=== PATIENT | female | born 1955 | race Caucasian/White ===

== ENCOUNTER 2021-11-05 09:30 | Outpatient (CLI) | payer MEDICARE, SELFPAY ==
--- NOTE | 2021-11-05 10:03 | MM_ITS ---
WS: [id number] BILATERAL SCREENING DIGITAL BREAST TOMOSYNTHESIS MAMMOGRAM WITH CAD HISTORY: SCREENING COMPARISON: 01/11/2018 and 01/15/2014 Bilateral CC and MLO views with tomosynthesis and synthetic mammography submitted. Computer aided det ection analyzed. Breast composition: There are scattered areas of fibroglandular density. No suspicious masses, microc alcifications or architectural distortion. Scattered bilateral asymmetries within each breast and laura cifications and nodules. No interval change or development of architectural distortion. MM/[place] [id number] IMPRESSION: BI-RADS: 2-Benign FOLLOW UP: 1 Year Follow-up
== END 2021-11-05 09:31 | disposition home or self-care (01) ==
LOC: RAD 09:30
PROVIDERS: Family Provider Family Medicine; Visit Provider Family Medicine
DX: Z12.31 Encounter for screening mammogram for malignant neoplasm of breast (principal)
CPT/HCPCS: 77063; 77067

== ENCOUNTER 2021-12-28 13:16 | Outpatient (CLI) | payer MEDICARE, SELFPAY ==
--- NOTE | 2021-12-28 13:31 | XR_ITS ---
WS: [id number] DEXA (DUAL ENERGY X-RAY ABSORPTIOMETRY) Bone mineral density was performed using a [employer] machine. HISTORY: POSTMENOPAUSAL COMPARISON: None available. Lumbar spine BMD (L1-L4): 1.417 g/cm2 T score: 2.0 Z score: 2.9 Total hip BMD: Left: 0.998 g/cm2. T score: -0.1 Z score: 0.7 Right: 0.932 g/cm2. T score: -0.6 Z score: 0.2 10 year probability of a major osteoporotic fracture is 7.5%. XR/XR DEXA axial skeleton* [id number] IMPRESSION: NORMAL BONE MINERAL DENSITY based upon the WHO classification for females.
== END 2021-12-28 13:17 | disposition home or self-care (01) ==
LOC: RAD 13:20
PROVIDERS: PCP Family Medicine; Visit Provider Nurse Practitioner Family
DX: Z78.0 Asymptomatic menopausal state (principal)
CPT/HCPCS: 77080

== ENCOUNTER 2022-11-24 10:50 | Outpatient (CLI) | payer MEDICARE, SELFPAY ==
--- NOTE | 2022-11-24 11:01 | MM_ITS ---
WS: [id number] BILATERAL SCREENING DIGITAL TOMOSYNTHESIS MAMMOGRAM WITH CAD HISTORY: SCREENING COMPARISON: 11/05/2021, 01/11/2018 Bilateral CC and MLO views with tomosynthesis and synthetic mammography submitted. Computer aided det ection analyzed. Breast composition: There are scattered areas of fibroglandular density. No suspicious masses, microc alcifications or architectural distortion. Benign bilateral scattered densities. IMPRESSION: MM/[place] [id number] BI-RADS: 2-Benign FOLLOW UP: 1 Year Follow-up
== END 2022-11-24 10:51 | disposition home or self-care (01) ==
PROVIDERS: PCP Family Medicine; Visit Provider Nurse Practitioner Family
DX: Z12.31 Encounter for screening mammogram for malignant neoplasm of breast (principal)
CPT/HCPCS: 77063; 77067

== ENCOUNTER 2023-07-31 20:23 | Emergency (ER) | payer MEDICARE, OTHER, SELFPAY ==
[2023-07-31 20:37] VITALS: BP 164/88; PULSE 86; TEMP 36.8; O2SAT 100; BMI 32.1
--- NOTE | 2023-07-31 20:53 | ED_ITS ---
HPI - Abdominal Pain 2 General: Chief Complaint: Abdominal Pain Stated Complaint: right abdomen pain Time Seen by Provider: 07/31/23 20:36 History of Present Illness: Patient presents to the ER with complaints of upper abdominal pain/epigastric right upper quadrant. She states pain began a few hours ago after eating taco salad. Patient does say that there is no rhyme or reason when it comes on or goes away sometimes before she eats sometimes after symptoms has nothing new with when she eats. Patient does have a history of GERD but is never told she has history of ulcers. Patient is on proton pump inhibitor and has been on for about 2 years. Patient denies any nausea vomiting. Review of Systems 2 General: Reports: 10 or more systems reviewed and unremarkable except in HPI and below Physical Exam 2 Const: COMMON NORMALS: no acute distress, average body habitus, patient oriented x3, no limitations, healthy appearing and alert HENMT: COMMON NORMALS: normocephalic, atraumatic, hearing grossly normal bilaterally, external ears normal, Normal external nose present, moist oral mucous membranes and oropharynx normal HEAD & SCALP: normocephalic and atraumatic NOSE: Normal external nose present EXTERNAL EAR: Yes external ears normal Neck/C-Spine: COMMON NORMALS: no JVD Chest: COMMONS NORMALS: normal inspection of the chest and normal palpation of entire chest wall Resp: COMMON NORMALS: normal respiratory effort, No retractions, No use of accessory muscles and clear to auscultation bilaterally AUSCULTATION: clear to auscultation bilaterally Cardio: COMMON NORMALS: no JVD, regular rate, regular rhythm, S1 normal heart sound present, S2 normal heart sound present, No gallops present (Cardio), No clicks present (Cardio), No murmurs present (Cardio) and No rub (Cardio) R ATE: regular rate RHYTHM: regular rhythm HEART SOUNDS: S1 normal heart sound present and S2 normal heart sound present GI: COMMON NORMALS: Normal to inspection, nondistended, normoactive bowel sounds present, Soft to palpation and No hepatosplenomegaly present; negative for non-tender (Tender to palpate right upper quadrant and epigastric area) PALPATION: Yes Soft to palpation and Yes No hepatosplenomegaly present Neuro: COMMON NORMALS: patient oriented x3 SENSORIUM/ORIENTATION: Yes alert Course 2 Vital Signs: Vital signs: Vital Signs Temperature 98.3 F 07/31/23 20:37 Pulse Rate 87 07/31/23 21:02 Respiratory Rate 16 07/31/23 21:02 Blood Pressure 153/88 07/31/23 21:02 Pulse Oximetry 100 07/31/23 21:02 Oxygen Delivery Me thod Room Air 07/31/23 20:37 MDM - Abdominal Pain Medical Decision Making Patient pain began to subside before getting here and then after the GI cocktail it subsided even more. Lab work was obtained as well as urinalysis showed hemoglobin of 8.8 and urine positive for urinary tract infection. Patient was given Cipro to start her antibiotic regimen and talked about possible need for an EGD. Patient be discharged and referred back to her primary care physician. Differential Diagnosis Likely abdominal pain; Unlikely acute appendicitis, calculus of kidney, constipation, diverticulitis, endometriosis, gastroenteritis, pancreatitis or small bowel obstruction Medical Records I reviewed the patient's medical records. Lab Data I reviewed the patient's lab results. 07/31/23 20:54 07/31/23 20:54 Labs/Radiology: Laboratory Results WBC 8.78 10^3/uL (3.29-11.43) 07/31/23 20:54 RBC 3.76 10^6/uL (3.85-5.65) L 07/31/23 20:54 Hgb 8.80 g/dL (11.27-16.99) L 07/31/23 20:54 Hct 30.3 % (36-47) L 07/31/23 20:54 MCV 80.6 fl (85-98) L 07/31/23 20:54 MCH 23.4 pg (27-33) L 07/31/23 20:54 MCHC 29.0 g/dL (30-55) L 07/31/23 20:54 RDW 16.2 % (12.1-15.1) H 07/31/23 20:54 Plt Count 436 10^3/cmm (157-399) H 07/31/23 20:54 MPV 9.3 fL (7.4-10.4) 07/31/23 20:54 Neut % (Auto) 62.4 % 07/31/23 20:54 Lymph % (Auto) 28.4 % 07/31/23 20:54 [place] % (Auto) 6.2 % 07/31/23 20:54 Eos % (Auto) 2.2 % 07/31/23 20:54 Baso % (Auto) 0.5 % 07/31/23 20:54 Neut # (Auto) 5.49 10^3/uL (1.8-7.7) 07/31/23 20:54 Lymph # (Auto) 2.5 10^3/uL (0.8-4.8) 07/31/23 20:54 [place] # (Auto) 0.5 10^3/uL (0.2-0.9) 07/31/23 20:54 Eos # (Auto) 0.2 10^3/uL (0.0-0.8) 07/31/23 20:54 Baso # (Auto) 0.0 10^3/uL (0.0-0.1) 07/31/23 20:54 Nucleated RBC % (auto) 0 % 07/31/23 20:54 Nucleated RBCs # 0.0 /100WBC 07/31/23 20:54 Sodium 137 mmol/L (136-145) 07/31/23 20:54 Potassium 4.1 mmol/L (3.5-5.1) 07/31/23 20:54 Chloride 99 mmol/L (98-107) 07/31/23 20:54 Carbon Dioxide 25 mmol/L (22-29) 07/31/23 20:54 Anion Gap 17.1 (5-19) 07/31/23 20:54 BUN 21 mg/dL (8-23) 07/31/23 20:54 Creatinine 1.0 mg/dL (0.5-0.9) H 07/31/23 20:54 GFR Calculation 55.3 mL/min (90-130) L 07/31/23 20:54 Glucose 239 mg/dL (65-115) H 07/31/23 20:54 Calculated Osmolality 295 mOsm/kg (285-295) 07/31/23 20:54 Calcium 9.2 mg/dL (8.5-10.5) 07/31/23 20:54 Total Bilirubin 0.2 mg/dL (0.15-1.2) 07/31/23 20:54 AST 19 U/L (0-32) 07/31/23 20:54 ALT 19 U/L (0-33) 07/31/23 20:54 Alkaline Phosphatase 59 U/L (35-105) 07/31/23 20:54 Total Protein 6.9 g/dL (6.6-8.7) 07/31/23 20:54 Albumin 4.2 g/dL (3.5-5.2) 07/31/23 20:54 Globulin 2.7 g/dL (1.3-4.6) 07/31/23 20:54 Lipase 33 U/L (13-60) 07/31/23 20:54 Urine Color Yellow (Yellow) 07/31/23 21:05 Urine Appearance Hazy (CLEAR) A 07/31/23 21:05 Urine pH 5 (5-7) 07/31/23 21:05 Ur Specific [place] 1.010 (1.005-1.030) 07/31/23 21:05 Urine Protein Neg (Negative) 07/31/23 21:05 Urine Glucose (UA) 2+ (Normal) H 07/31/23 21:05 Urine Ketones 1+ (Negative) H 07/31/23 21:05 Urine Blood Neg (Negative) 07/31/23 21:05 Urine Nitrate Positive (Negative) H 07/31/23 21:05 Urine Bilirubin Neg (Negative) 07/31/23 21:05 Urine Urobilinogen Neg mg/dL (Negative) 07/31/23 21:05 Ur Leukocyte Esterase 2+ (Negative) H 07/31/23 21:05 Urine RBC 0-4 /hpf (0-2) H 07/31/23 21:05 Urine WBC 15-25 /hpf (0-5) H 07/31/23 21:05 Ur Squamous Epith Cells 0-4 /hpf (0-5) H 07/31/23 21:05 Amorphous Sediment Not Reportable 07/31/23 21:05 Urine Bacteria 3+ /hpf (NONE) H 07/31/23 21:05 All radiology interpretation(s) finalized by discharge Discharge Plan Discharge Patient Disposition: Home Clinical Impression: Abdominal pain Qualifiers: Abdominal location: epigastric Qualified Code(s): R10.13 - Epigastric pain Urinary tract infection Qualifiers: Urinary tract infection type: acute cystitis Hematuria presence: with hematuria Qualified Code(s): N30.01 - Acute cystitis with hematuria Anemia Qualifiers: Anemia type: unspecified type Qualified Code(s): D64.9 - Anemia, unspecified Condition: Stable Prescriptions: New Pepcid 40 mg tablet 40 mg PO BID Qty: 30 0RF ciprofloxacin HCl 500 mg tablet 500 mg PO Q12H Qty: 20 0RF Discharge Orders: Discharge ED (Routine); Ordered 07/31/23 Ordered By: Chuy Hernandez Referrals: Mushtaq Fernandes MD [Primary Care Provider] - 1 week Patient Instructions: Urinary Tract Infection in Women (DC), Abdominal Pain (ED) Activity Restrictions/Additional Instructions: Please take all your medicine as prescribed. Please follow-up with your family practice physician as you may need an EGD for further diagnostic evaluation. 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
[2023-07-31] MEDS: lidocaine 2% viscous 15 ML, aluminum-mag hydrox-simethicon 30 ML, sucralfate oral liq 1 GM PO (21:00)
[2023-07-31 21:01] LABS: Basophils % 0.5 %; Eosinophils # 0.2 10^3/uL (0.0-0.8); Eosinophils % 2.2 %; Hematocrit 30.3 % (36-47); Lymphocytes # 2.5 10^3/uL (0.8-4.8); Lymphocytes % 28.4 %; Mean Corpuscular Hemoglobin 23.4 pg (27-33); Mean Corpuscular Volume 80.6 fl (85-98); Mean Platelet Volume 9.3 fL (7.4-10.4); Monocytes # 0.5 10^3/uL (0.2-0.9); Monocytes % 6.2 %; Neutrophils # 5.49 10^3/uL (1.8-7.7); Neutrophils % 62.4 %; Nucleated Red Blood Cells % 0 %; Platelet Count 436 10^3/cmm (157-399); Red Blood Count 3.76 10^6/uL (3.85-5.65); Red Cell Distribution Width 16.2 % (12.1-15.1); White Blood Count 8.78 10^3/uL (3.29-11.43)
[2023-07-31 21:02] VITALS: BP 153/88; PULSE 87; RESP 16; O2SAT 100
[2023-07-31 21:23] LABS: Add Urine Microscopic? YES; Bacteria Urine 3+ /hpf; Bilirubin Urine Neg (Negative); Blood Urine Neg (Negative); Glucose Urine UA 2+ (Normal); Ketones Urine 1+ (Negative); Leukocyte Esterase Urine 2+ (Negative); Nitrate Urine Positive (Negative); Protein Urine Neg (Negative); RBC Urine 0-4 /hpf (0-2); Squamous Epithelial Cell Urine 0-4 /hpf (0-5); Urine Appearance Hazy (CLEAR); Urine Color Yellow (Yellow); Urobilinogen Urine Neg (Negative); WBC Urine 15-25 /hpf (0-5); pH Urine 5 (5-7)
[2023-07-31 21:24] LABS: Add Urine Culture? Yes
[2023-07-31 21:25] LABS: Alanine Aminotransferase 19 U/L (0-33); Albumin Level 4.2 g/dL (3.5-5.2); Alkaline Phosphatase 59 U/L (35-105); Anion Gap 17.1 (5-19); Aspartate Amino Transferase 19 U/L (0-32); Blood Urea Nitrogen 21 mg/dL (8-23); Calcium 9.2 mg/dL (8.5-10.5); Carbon Dioxide 25 mmol/L (22-29); Chloride 99 mmol/L (98-107); Creatinine Clr Calc Pharmacy 63.9067; Globulin 2.7 g/dL (1.3-4.6); Glomerular Filtration Rate 55.3 mL/min (90-130); Glucose 239 mg/dL (65-115); Lipase 33 U/L (13-60); Osmolality Calculated 295 mOsm/kg (285-295); Potassium 4.1 mmol/L (3.5-5.1); Sodium 137 mmol/L (136-145); Total Bilirubin 0.2 mg/dL (0.15-1.2); Total Protein 6.9 g/dL (6.6-8.7)
[2023-07-31] MEDS: ciprofloxacin 500 mg Tablet PO (21:45)
[2023-07-31 21:49] VITALS: BP 155/81; PULSE 87; RESP 16; O2SAT 98
== END 2023-07-31 21:49 | disposition home or self-care (01) ==
PROVIDERS: Emergency Provider Emergency Medicine; PCP Family Medicine
DX: N30.01 Acute cystitis with hematuria (principal); D64.9 Anemia, unspecified; R10.13 Epigastric pain
CPT/HCPCS: 36415; 80053; 81001; 83690; 85025; 87077; 87086; 87186; 99283

== ENCOUNTER 2023-10-23 12:38 | Outpatient (CLI) | payer MEDICARE, OTHER, SELFPAY ==
--- NOTE | 2023-10-23 13:15 | CT_ITS ---
WS: [id number] CT ABDOMEN WITH CONTRAST HISTORY: ABDOMINAL PAIN Contiguous single phase 5 mm axial imaging performed to the abdomen. Oral contrast has not been provi ded. Coronal and sagittal reformats are submitted. All CT scans at [facility] use at least on e of these dose optimization techniques: automated exposure control; mA and/or kV adjustment per lesvia ent size (includes targeted exams where dose is matched to clinical indication); or iterative reconst ruction. IV CONTRAST: Omnipaque 350; 100 mL IV. Oral contrast: No DLP: 457.70 mGy.cm COMPARISON: 01/08/2013 Lower thorax: Benign granulomata at the lung bases. Normal size heart. No hiatal hernia. Liver/biliary system: Normal size with no intrahepatic dilatation. Gallbladder: Normal. No gallstones or wall thickening. No pericholecystic fluid. Pancreas: Normal size pancreas and pancreatic duct. No adjacent inflammation. Spleen: Granulomata. Normal size. Adrenal glands: Normal. Right kidney: Normal. Left kidney: Normal. Aorta: Mild atherosclerosis with no aneurysm. Lymphadenopathy: None. Free fluid: None. GI tract: Normally distended stomach. Proximal small bowel and visualized colon are normal within the abdomen. There are a few central mesenteric very small lymph nodes. Abdominal wall: Unremarkable abdominal wall. No hernia. Visualized osseous structures: Unremarkable. CT/CT abdomen w con* [id number] IMPRESSION: 1. No acute abdominal findings are identified. 2. Negative gallbladder. 3. No renal obstruction.
[2023-10-23] MEDS: iohexol 350 mg/mL 500 mL Btl (per mL) IV (13:36)
== END 2023-10-23 12:39 | disposition home or self-care (01) ==
LOC: RAD 12:38
PROVIDERS: PCP Family Medicine; Visit Provider Family Medicine
DX: R10.9 Unspecified abdominal pain (principal); J84.10 Pulmonary fibrosis, unspecified
CPT/HCPCS: 74160; Q9967

== ENCOUNTER 2024-01-31 14:56 | Outpatient (CLI) | payer OTHER, MEDICARE, SELFPAY ==
--- NOTE | 2024-01-31 14:59 | MM_ITS ---
WS: [id number] BILATERAL 3D TOMOSYNTHESIS DIGITAL SCREENING MAMMOGRAPHY WITH CAD CLINICAL INFORMATION: SCREENING HISTORY: Screening mammogram. No current complaints. COMPARISON: 2022 TECHNIQUE: Bilateral CC and MLO views. FINDINGS: Scattered fibroglandular densities bilaterally. No suspicious focal mass, asymmetry, calcifications, or architectural distortion. No evidence of malignancy. Punctate and lucent centered calcifications. MM/MM scr tomosynthesis [id number] IMPRESSION: DENSITY: There are scattered areas of fibroglandular density. BI-RADS: 2 - Benign. FOLLOW UP: 1 Year Follow-up Recommend return to annual screening mammography.
== END 2024-01-31 14:57 | disposition home or self-care (01) ==
LOC: RAD 14:56
PROVIDERS: PCP Family Medicine; Visit Provider Family Medicine
DX: Z12.31 Encounter for screening mammogram for malignant neoplasm of breast (principal); R92.323 Mammographic fibroglandular density, bilateral breasts; R92.1 Mammographic calcification found on diagnostic imaging of breast
CPT/HCPCS: 77063; 77067

== ENCOUNTER 2024-06-12 01:06 | Emergency (ER) | payer OTHER, MEDICARE, SELFPAY ==
--- NOTE | 2024-06-12 01:07 | XRR_ITS ---
PROCEDURE INFORMATION: Exam: XR Chest Exam date and time: 06/12/2024 1:57 AM Age: 68 years old Clinical indication: Pain; Chest pressure; Additional info: Chest pain TECHNIQUE: Imaging protocol: Radiologic exam of the chest. Views: 1 view. COMPARISON: CT abdomen w con* [id number] 10/23/2023 1:31 PM FINDINGS: Lungs: Unremarkable. No consolidation. Pleural spaces: Unremarkable. No pleural effusion. No pneumothorax. Heart/Mediastinum: Unremarkable. No cardiomegaly. Bones/joints: Unremarkable. XR/XR chest 1V portable [id number] IMPRESSION: No acute findings.
[2024-06-12 01:10] VITALS: BP 145/87; PULSE 80; RESP 18; TEMP 36.5; O2SAT 99; BMI 29.0
[2024-06-12 01:29] LABS: Basophils # 0.1 10^3/uL (0.0-0.1); Basophils % 0.6 %; Eosinophils # 0.2 10^3/uL (0.0-0.8); Eosinophils % 2.3 %; Hematocrit 39.7 % (36-47); Lymphocytes % 36.2 %; Mean Corpuscular HGB Conc 31.2 g/dL (30-55); Mean Corpuscular Volume 92.8 fl (85-98); Mean Platelet Volume 9.1 fL (7.4-10.4); Monocytes # 0.5 10^3/uL (0.2-0.9); Monocytes % 6.3 %; Neutrophils # 4.47 10^3/uL (1.8-7.7); Neutrophils % 54.4 %; Nucleated Red Blood Cells % 0 %; Platelet Count 408 10^3/cmm (157-399); Red Blood Count 4.28 10^6/uL (3.85-5.65); Red Cell Distribution Width 13.6 % (12.1-15.1); White Blood Count 8.23 10^3/uL (3.29-11.43)
[2024-06-12 01:46] LABS: Alanine Aminotransferase 27 U/L (0-33); Albumin Level 4.5 g/dL (3.5-5.2); Alkaline Phosphatase 63 U/L (35-105); Anion Gap 16.1 (5-19); Aspartate Amino Transferase 19 U/L (0-32); Blood Urea Nitrogen 23 mg/dL (8-23); Calcium 9.4 mg/dL (8.5-10.5); Carbon Dioxide 27 mmol/L (22-29); Chloride 101 mmol/L (98-107); Creatinine Clr Calc Pharmacy 59.9471; Globulin 2.7 g/dL (1.3-4.6); Glomerular Filtration Rate 55.1 mL/min (90-130); Glucose 173 mg/dL (65-115); Lipase 41 U/L (13-60); Osmolality Calculated 298 mOsm/kg (285-295); Potassium 4.1 mmol/L (3.5-5.1); Sodium 140 mmol/L (136-145); Total Bilirubin 0.2 mg/dL (0.15-1.2); Total Protein 7.2 g/dL (6.6-8.7)
--- NOTE | 2024-06-12 01:59 | CTR_ITS ---
PROCEDURE INFORMATION: Exam: CT Abdomen And Pelvis With Contrast Exam date and time: 06/12/2024 2:11 AM Age: 68 years old Clinical indication: Abdominal tenderness; Additional info: Abdominal pain TECHNIQUE: Imaging protocol: Computed tomography of the abdomen and pelvis with contrast. Radiation optimization: All CT scans at this facility use at least one of these dose optimization techniques: automated exposure control; mA and/or kV adjustment per patient size (includes targeted exams where dose is matched to clinical indication); or iterative reconstruction. Contrast material: ONMI 350; Contrast volume: 100 ml; Contrast route: INTRAVENOUS (IV); COMPARISON: CT abdomen w con* [id number] 10/23/2023 1:31 PM RADIATION DOSE METRICS: Total DLP (mGy-cm): 760.46 FINDINGS: Lungs: Visualized lung bases are clear. Liver: The liver is unremarkable. Gallbladder and biliary ducts: The gallbladder is unremarkable. No biliary ductal dilatation. Pancreas: Moderate atrophy of the pancreas. No pancreatic ductal dilation. Spleen: The spleen is unremarkable. Adrenal glands: The adrenal glands are unremarkable. Kidneys and ureters: Multiple subcentimeter hypoattenuating lesions in the bilateral kidneys, too small to further characterize likely cysts. No hydronephrosis or hydroureter. No large renal stones. Stomach and bowel: Multiple loops of small bowel demonstrate questionable bowel wall thickening. Mild colonic diverticulosis. No CT evidence of acute diverticulitis. Appendix: No evidence of acute appendicitis. Intraperitoneal space: No extraluminal free air. No significant free fluid in the abdomen or pelvis. Vasculature: Mild scattered calcific atheromatous disease of the abdominal aorta and its major branches. No abdominal aortic aneurysm. Lymph nodes: No distinct pathologically enlarged lymphadenopathy. Urinary bladder: Moderate pelvic prolapse of the urinary bladder. Urinary bladder is otherwise normal in appearance. Reproductive: Visualized reproductive structures are within normal limits. Bones/joints: Multilevel spondylosis. Prominent discogenic degenerative changes at L1-L2. Chronic appearing grade 1 anterolisthesis of L3 on L4. No distinct acute osseous findings. Soft tissues: Visualized superficial soft tissues are within normal limits. CT/CT abdomen pelvis w con* [id number] IMPRESSION: 1. Moderate pelvic prolapse of the urinary bladder. Urinary bladder is otherwise normal in appearance. 2. Multiple loops of small bowel demonstrate questionable bowel wall thickening. This is likely incidental but can be seen with mild nonspecific enteritis. COMMENTS: Consistent with the [employer]'s Incidental Findings Committee white paper (J Am Jeannette Radiol 2018): Any incidental renal lesion less than 1 cm or classified as too small to characterize, or any incidental cystic renal lesion characterized as simple-appearing, is likely benign. No follow-up imaging is recommended for these lesions per consensus recommendations based on imaging criteria.
--- NOTE | 2024-06-12 02:24 | W.ED.ABDPA2 ---
HPI - Abdominal Pain General: Chief Complaint: Abdominal Pain Stated Complaint: Pain in upper stomach Time Seen by Provider: 06/12/24 01:51 History of Present Illness: 68-year-old female who presents emergency room with epigastric abdominal pain that started in the last few hours. She had an episode similar about a year ago and had a negative workup in the emergency room at that time. She was supposed to follow-up but symptoms got better. Now she is been having symptoms again over the last little bit. She talked her PCP who is supposed to order something but she does not know what it was. No nausea or vomiting. She says its epigastric and chest type pain. No cough. No diarrhea. No fever. Related Data Previous Rx's ?Medication ?Instructions ?Recorded ciprofloxacin HCl 500 mg tablet 500 mg PO Q12H #20 tabs 07/31/23 famotidine 40 mg tablet (Pepcid) 40 mg PO BID #30 tabs 07/31/23 Allergies Allergy/AdvReac Type Severity Reaction Status Date / Time Sulfa (Sulfonamide Allergy Unknown Verified 07/31/23 20:42 Antibiotics) Review of Systems Narrative: Constitutional symptoms: Negative except as documented in HPI. Skin symptoms: Negative except as documented in HPI. Eye symptoms: Negative except as documented in HPI. ENMT symptoms: Negative except as documented in HPI. Respiratory symptoms: Negative except as documented in HPI. Cardiovascular symptoms: Negative except as documented in HPI. Gastrointestinal symptoms: Negative except as documented in HPI. Genitourinary symptoms: Negative except as documented in HPI. Musculoskeletal symptoms: Negative except as documented in HPI. Neurologic symptoms: Negative except as documented in HPI. Psychiatric symptoms: Negative except as documented in HPI. Endocrine symptoms: Negative except as documented in HPI. Physical Exam Narrative: EXAM NARRATIVE: General: Alert, no acute distress. Skin: Warm, dry. Head: Normocephalic, atraumatic. Neck: Supple, trachea midline. Eye: Extraocular movements are intact. Ears, nose, mouth and throat: mucosa moist. Cardiovascular: Regular, Normal peripheral perfusion. Respiratory: Lungs are clear to auscultation, respirations are non-labored, breath sounds are equal, Symmetrical chest wall expansion. Gastrointestinal: Soft, some epigastric tenderness, Non distended Musculoskeletal: Normal ROM, no deformity. Neurological: Alert and oriented, No focal neurological deficit observed. Psychiatric: Cooperative, appropriate mood & affect. Course Vital Signs: Vital signs: Vital Signs Temperature 97.7 F 06/12/24 01:10 Pulse Rate 79 06/12/24 02:50 Respiratory Rate 18 06/12/24 02:50 Blood Pressure 136/78 06/12/24 02:50 Pulse Oximetry 97 06/12/24 02:50 Oxygen Delivery Me thod Room Air 06/12/24 02:50 MDM - Abdominal Pain Medical Decision Making Medical decision making: Differential diagnosis including but not limited to and based on the above HPI, review of systems and physical exam: In this patient with epigastric pain differential would include cholelithiasis or cholecystitis. Hepatitis. Diverticulitis. Constipation. UTI. colitis. small bowel obstruction. crohn's flare. pancreatitis. gastritis. peptic ulcer. also concern for acute cardiac event. Orders placed to evaluate differential diagnosis based on the above differential, HPI and physical exam Chest x-ray: No acute process. No infiltrate. No pneumothorax. Films were interpreted by myself the emergency room provider and pending final radiology review. Lab Review: Laboratory results were reviewed and interpreted by myself the emergency room physician. No leukocytosis. No anemia. No renal failure. Liver enzymes are normal. Lipase is normal. CT abdomen pelvis: No acute findings. This was reviewed and interpreted by myself the emergency room physician. I also reviewed the radiology report. I reviewed the patient's medical record. Reexamination: Patient remained stable. No increased work of breathing. No altered mental status. No focal motor deficits. Assessment and plan: Abdominal pain ? Peptic ulcer disease? Needs GI consultation likely. - Discharged home - Discussed plan with patient. Answered any questions. - Evaluation and treatment of this problem were appropriate in the emergency setting. Lab Data 06/12/24 01:22 06/12/24 01:22 Labs/Radiology: Radiology Impressions Chest X-Ray 06/12/24 01:07 IMPRESSION: No acute findings. Abdomen/Pelvis CT 06/12/24 01:59 IMPRESSION: 1. Moderate pelvic prolapse of the urinary bladder. Urinary bladder is otherwise normal in appearance. 2. Multiple loops of small bowel demonstrate questionable bowel wall thickening. This is likely incidental but can be seen with mild nonspecific enteritis. COMMENTS: Consistent with the [employer]'s Incidental Findings Committee white paper (J Am Jeannette Radiol 2018): Any incidental renal lesion less than 1 cm or classified as too small to characterize, or any incidental cystic renal lesion characterized as simple-appearing, is likely benign. No follow-up imaging is recommended for these lesions per consensus recommendations based on imaging criteria. Laboratory Results WBC 8.23 10^3/uL (3.29-11.43) 06/12/24 01:22 RBC 4.28 10^6/uL (3.85-5.65) 06/12/24 01:22 Hgb 12.40 g/dL (11.27-16.99) 06/12/24 01:22 Hct 39.7 % (36-47) 06/12/24 01:22 MCV 92.8 fl (85-98) 06/12/24 01: MCH 29.0 pg (27-33) 06/12/24 01: MCHC 31.2 g/dL (30-55) 06/12/24 01:22 RDW 13.6 % (12.1-15.1) 06/12/24 01:22 Plt Count 408 10^3/cmm (157-399) H 06/12/24 01:22 MPV 9.1 fL (7.4-10.4) 06/12/24 01:22 Neut % (Auto) 54.4 % 06/12/24 01:22 Lymph % (Auto) 36.2 % 06/12/24 01:22 [place]an % (Auto) 6.3 % 06/12/24 01:22 Eos % (Auto) 2.3 % 06/12/24 01:22 Baso % (Auto) 0.6 % 06/12/24 01:22 Neut # (Auto) 4.47 10^3/uL (1.8-7.7) 06/12/24 01:22 Lymph # (Auto) 3.0 10^3/uL (0.8-4.8) 06/12/24 01:22 [place]an # (Auto) 0.5 10^3/uL (0.2-0.9) 06/12/24 01:22 Eos # (Auto) 0.2 10^3/uL (0.0-0.8) 06/12/24 01:22 Baso # (Auto) 0.1 10^3/uL (0.0-0.1) 06/12/24 01:22 Nucleated RBC % (auto) 0 % 06/12/24 01:22 Nucleated RBCs # 0.0 /100WBC 06/12/24 01:22 Sodium 140 mmol/L (136-145) 06/12/24 01:22 Potassium 4.1 mmol/L (3.5-5.1) 06/12/24 01:22 Chloride 101 mmol/L (98-107) 06/12/24 01:22 Carbon Dioxide 27 mmol/L (22-29) 06/12/24 01:22 Anion Gap 16.1 (5-19) 06/12/24 01:22 BUN 23 mg/dL (8-23) 06/12/24 01:22 Creatinine 1.0 mg/dL (0.5-0.9) H 06/12/24 01:22 GFR Calculation 55.1 mL/min (90-130) L 06/12/24 01:22 Glucose 173 mg/dL (65-115) H 06/12/24 01:22 Calculated Osmolality 298 mOsm/kg (285-295) H 06/12/24 01:22 Lactic Acid 2.0 mmol/L (0.5-2.2) 06/12/24 01:22 Calcium 9.4 mg/dL (8.5-10.5) 06/12/24 01:22 Total Bilirubin 0.2 mg/dL (0.15-1.2) 06/12/24 01:22 AST 19 U/L (0-32) 06/12/24 01:22 ALT 27 U/L (0-33) 06/12/24 01:22 Alkaline Phosphatase 63 U/L (35-105) 06/12/24 01:22 Troponin T Baseline 14 ng/L (0-10) H 06/12/24 02:03 Total Protein 7.2 g/dL (6.6-8.7) 06/12/24 01:22 Albumin 4.5 g/dL (3.5-5.2) 06/12/24 01:22 Globulin 2.7 g/dL (1.3-4.6) 06/12/24 01:22 Lipase 41 U/L (13-60) 06/12/24 01:22 Urine Color Yellow (Yellow) 06/12/24 02:03 Urine Appearance Clear (CLEAR) 06/12/24 02:03 Urine pH 5.0 (5-7) 06/12/24 02:03 Ur Specific [place] 1.023 (1.005-1.030) 06/12/24 02:03 Urine Protein Negative (Negative) 06/12/24 02:03 Urine Glucose (UA) Negative (Normal) 06/12/24 02:03 Urine Ketones Trace (Negative) 06/12/24 02:03 Urine Blood Negative (Negative) 06/12/24 02:03 Urine Nitrate Negative (Negative) 06/12/24 02:03 Urine Bilirubin Negative (Negative) 06/12/24 02:03 Urine Urobilinogen 0.2 mg/dL (Negative) 06/12/24 02:03 Ur Leukocyte Esterase 1+ (Negative) A 06/12/24 02:03 Urine RBC 0-2 /hpf (0-2) 06/12/24 02:03 Urine WBC 6-10 /hpf (0-5) 06/12/24 02:03 Ur Squamous Epith Cells 0-5 /hpf (0-5) 06/12/24 02:03 Amorphous Sediment Not Reportable 06/12/24 02:03 Urine Bacteria None seen /hpf (NONE) 06/12/24 02:03 Hyaline Casts 2.46 /lpf 06/12/24 02:03 Influenza A (PCR) Negative (Negative) 06/12/24 02:23 Influenza Type B (PCR) Negative (Negative) 06/12/24 02:23 RSV (PCR) Negative (Negative) 06/12/24 02:23 SARS-CoV-2 (PCR) Negative (Negative) 06/12/24 02:23 All radiology interpretation(s) finalized by discharge Discharge Plan Discharge Patient Disposition: Home Clinical Impression: Abdominal pain Condition: Stable Prescriptions: No Action Pepcid 40 mg tablet 40 mg PO BID Qty: 30 0RF ciprofloxacin HCl 500 mg tablet 500 mg PO Q12H Qty: 20 0RF Discharge Orders: Discharge ED (Routine); Ordered 06/12/24 Ordered By: Gena Alex Referrals: Mushtaq Fernandes MD [Primary Care Provider] - Discharge Diet: Usual diet Discharge Activity: Increase activity as tolerated Patient Instructions: Abdominal Pain (ED), Opioid Safety, Pain Management Activity Restrictions/Additional Instructions: Thank you for choosing [facility] for your healthcare needs today. Please realize this is an emergency room and that we are providing you with a medical screening exam and this may not be complete and all inclusive of all the testing and or work up that you may need to determine your ailment or severity of your illness. You have been screened and evaluated and felt safe for discharge. Health conditions do change or evolve sometimes and as such it is important that you follow up with your Primary Doctor to be re checked, 3-5 days is a general good time frame for follow up. You are always welcome to return to the ED for re assessment if your symptoms are worsening or you have new concerns Print Language: Lithuanian Coding Level of Care Code ED Litigation Legal Secretary for Neto Zavala
[2024-06-12 02:28] LABS: Bilirubin Urine Negative (Negative); Blood Urine Negative (Negative); Glucose Urine UA Negative (Normal); Ketones Urine Trace (Negative); Leukocyte Esterase Urine 1+ (Negative); Nitrate Urine Negative (Negative); Protein Urine Negative (Negative); Specific Gravity, Urine 1.023 (1.005-1.030); Urine Appearance Clear (CLEAR); Urine Color Yellow (Yellow); Urobilinogen Urine 0.2 mg/dL (Negative)
[2024-06-12 02:29] LABS: Troponin(5th) Baseline 14 ng/L (0-10)
[2024-06-12 02:33] LABS: Bacteria Urine None Seen /hpf; Hyaline Casts Urine 2.46 /lpf; RBC Urine 0-2 /hpf (0-2); Squamous Epithelial Cell Urine 0-5 /hpf (0-5)
[2024-06-12] MEDS: iohexol 350 mg/mL 500 mL Btl (per mL) IV (02:44)
[2024-06-12 02:50] VITALS: BP 136/78; PULSE 79; RESP 18; O2SAT 97
[2024-06-12 03:18] LABS: Influenza A NEGATIVE (Negative); Influenza B NEGATIVE (Negative); Respiratory Syncytial Virus Ce NEGATIVE (Negative); SARS-CoV-2 PCR NEGATIVE (Negative)
[2024-06-12 04:51] LABS: Troponin 5 2HR 14.26 ng/L (0-10); Troponin 5 2HR Delta 0.26 ABS# (0-10)
[2024-06-12] MEDS: ketorolac 30 mg/mL INJ 15 MG IVP (05:12)
[2024-06-12] MEDS: famotidine 20 mg/2 mL INJ 40 MG IVP (05:12)
[2024-06-12 05:17] VITALS: BP 115/71; PULSE 76; RESP 16; O2SAT 98
== END 2024-06-12 05:18 | disposition home or self-care (01) ==
PROVIDERS: Emergency Provider Emergency Medicine; PCP Family Medicine
DX: R10.13 Epigastric pain (principal); Z11.52 Encounter for screening for COVID-19
CPT/HCPCS: 36415; 71045; 74177; 80053; 81001; 83605; 83690; 84484; 85025; 87637; 96374; 96375; 99285; J1885; J3490

== ENCOUNTER 2024-07-15 07:43 | Outpatient (CLI) | payer OTHER, MEDICARE, SELFPAY ==
--- NOTE | 2024-07-15 07:55 | NM_ITS ---
WS: [id number] NUCLEAR MEDICINE HIDA SCAN CLINICAL INFORMATION: RUQ PAIN TECHNIQUE: Following intravenous administration of 8.3 mCi of technetium 99m mebrofenin, images of the abdomen were obtained over the course of 60 minutes. Next, gallbladder ejection fraction was determined by obtaining preprandial and one-hour postprandial images of the gallbladder following oral ingestion of Ensure. FINDINGS: Normal hepatic uptake at 5 minutes. Normal hepatic excretion. Gallbladder is visualized at 15 minutes. No evidence of acute cholecystitis. Normal common bile duct and small bowel activity. Gallbladder ejection fraction 84% within normal limits. No evidence of chronic cholecystitis. NM/NM hepatobiliary w phar* [id number] IMPRESSION: 1. No evidence of acute or chronic cholecystitis. 2. Gallbladder ejection fraction 84% within normal limits.
== END 2024-07-15 07:44 | disposition home or self-care (01) ==
PROVIDERS: PCP Family Medicine; Visit Provider Family Medicine
DX: R10.9 Unspecified abdominal pain (principal)
CPT/HCPCS: 78227; A9537

== ENCOUNTER → 2024-09-12 09:50 | Outpatient (BNVA) | payer OTHER, MEDICARE, SELFPAY | PROVIDERS: PCP Family Medicine; Visit Provider Podiatrist Foot & Ankle Surgery | DX: M79.671 Pain in right foot (principal); M79.672 Pain in left foot; G62.9 Polyneuropathy, unspecified | CPT/HCPCS: 73630 ==

== ENCOUNTER 2025-01-29 15:00 | Oncology outpatient (recurring) (ONCR) | payer OTHER, MEDICARE, SELFPAY ==
[2025-01-20 15:15] VITALS: BP 107/67; PULSE 79; RESP 16; TEMP 36.7; O2SAT 95
[2025-01-20] MEDS: iron sucrose 200 MG in sodium chloride 0.9% (100 ml) 100 ML IV (15:17)
[2025-01-20 15:56] VITALS: BP 110/65; PULSE 79; RESP 16; TEMP 36.8; O2SAT 98
[2025-01-22] MEDS: iron sucrose 200 MG/100 ML BAG IV (15:11)
[2025-01-22 16:18] VITALS: BP 124/74; PULSE 78; RESP 17; TEMP 36.6; O2SAT 96
[2025-01-24] MEDS: iron sucrose 200 MG/100 ML BAG IV (08:07)
[2025-01-24 08:44] VITALS: BP 123/76; PULSE 78; RESP 16; TEMP 36.1; O2SAT 95
[2025-01-27 15:11] VITALS: BP 116/74; PULSE 83; RESP 17; TEMP 36.3; O2SAT 97
[2025-01-27] MEDS: iron sucrose 200 MG/100 ML BAG IV (15:24)
[2025-01-27 16:02] VITALS: BP 114/76; PULSE 84; RESP 16; TEMP 36.8; O2SAT 100
[2025-01-29] MEDS: iron sucrose 200 MG/100 ML BAG IV (15:08)
[2025-01-29 15:41] VITALS: BP 111/63
== END 2025-01-31 23:59 | disposition home or self-care (01) ==
PROVIDERS: PCP Family Medicine; Visit Provider Family Medicine
DX: D50.9 Iron deficiency anemia, unspecified; Z79.899 Other long term (current) drug therapy; Z53.9 Procedure and treatment not carried out, unspecified reason
CPT/HCPCS: 96365; J1756; J7050

== ENCOUNTER 2025-02-04 15:26 | Outpatient (CLI) | payer OTHER, MEDICARE, SELFPAY ==
--- NOTE | 2025-02-04 15:34 | MM_ITS ---
WS: [id number] BILATERAL 3D TOMOSYNTHESIS DIGITAL SCREENING MAMMOGRAPHY WITH CAD CLINICAL INFORMATION: SCREENING MAMMOGRAM HISTORY: Screening mammogram. No current complaints. COMPARISON: 2023 TECHNIQUE: Bilateral CC and MLO views. FINDINGS: Scattered fibroglandular densities bilaterally. No suspicious mass, asymmetry, calcifications, or architectural distortion. No evidence of malignancy. Incidental benign punctate and lucent centered calcifications. MM/MM scr tomosynthesis [id number] IMPRESSION: DENSITY: The breasts are heterogeneously dense, which may obscure small masses. BI-RADS: 2 - Benign FOLLOW UP: 1 Year Follow-up Recommend return to annual screening mammography.
== END 2025-02-04 15:27 | disposition home or self-care (01) ==
LOC: RAD 15:28
PROVIDERS: PCP Family Medicine; Visit Provider Family Medicine
DX: Z12.31 Encounter for screening mammogram for malignant neoplasm of breast (principal); R92.323 Mammographic fibroglandular density, bilateral breasts; R92.1 Mammographic calcification found on diagnostic imaging of breast
CPT/HCPCS: 77063; 77067